=== PATIENT | female | born 1995 | race Caucasian/White ===

== ENCOUNTER 2024-10-15 04:05 | Emergency (ER) | payer MEDICAID, SELFPAY ==
[2024-10-15] VITALS (7 sets, daily range): BP systolic 131–170; BP diastolic 75–133; PULSE 72–108; RESP 15–20; TEMP 36.6–37; O2SAT 93–98; BMI 54.5
--- NOTE | 2024-10-15 04:47 | XR_ITS ---
Examination: Abdomen sonogram, Limited Date and time of exam: October 15, 2024 0513 hrs. Indications: Epigastric pain radiating to the back beginning 5 hours ago Technique: Real-time be scale transabdominal sonographic images of the upper abdomen obtained. Findings: 7 mm gallbladder sludge ball Negative for cholelithiasis Gallbladder wall 0.3 cm Common bile duct 0.3 cm Pancreatic head is prominent 3.7 cm Hepatomegaly 20 cm fatty infiltration smooth contour Normal hepatopedal portal venous flow Patent IVC Impression: Gallbladder sludge, negative for cholelithiasis, negative for cholecystitis Pancreatic head is prominent, consider CT scan abdomen with contrast follow-up to exclude pancreatitis as clinically warranted
--- NOTE | 2024-10-15 04:47 | XR_ITS ---
Examination: PA chest single view Technique: Upright PA chest single view Exam date and time: October 15, 2024 1736 hrs. Indications: Epigastric pain radiating to the back today. Findings: Normal heart size Lungs are clear. The osseous structures are intact Impression: No active disease
--- NOTE | 2024-10-15 04:49 | PD.EDRME ---
Rapid Medical Screening Exam RME Arrival date/time: 10/15/24 04:05 29-year-old morbidly obese female presents emergency department complaining of epigastric pain that radiates towards mid back and nausea. Chief Complaint: Back Pain/Injury Time Seen by Provider: 10/15/24 04:08 Vital signs: Vital Signs Temperature 98.6 F 10/15/24 04:35 Pulse Rate 108 H 10/15/24 04:35 Respiratory Rate 20 10/15/24 04:35 Blood Pressure 170/133 H 10/15/24 04:35 Pulse Oximetry (%) 98 10/15/24 04:35 Oxygen Delivery Method Room Air 10/15/24 04:35 Vital signs reviewed by provider: Yes
[2024-10-15] MEDS: KETOROLAC INJ 60 MG/2 ML VIAL 30 MG IM (04:59)
[2024-10-15] MEDS: hydrALAZINE HCL 25 MG TABLET PO (04:59)
[2024-10-15 05:06] LABS: Collection Type, Urine Clean Catch
[2024-10-15 05:11] LABS: Basophils # (Auto) 0.1 Thou/mm3 (0.0-0.2); Basophils % (Auto) 1 % (0-2.5); Eosinophils # (Auto) 0.5 Thou/mm3 (0.0-0.5); Eosinophils % (Auto) 7 % (0-10); Hemoglobin 12.3 g/dL (12.0-16.0); Immature Granulocytes % (Auto) 0 % (0-0); Immature Granulocytes Auto 0.01 Thou/mm3 (0.00-0.00); Lymphocytes # (Auto) 2.6 Thou/mm3 (1.0-4.8); Lymphocytes % (Auto) 35 % (10-50); Mean Corpuscular HGB Conc 34.2 g/dl (31.0-37.0); Mean Corpuscular Hemoglobin 29.8 pg (25.0-35.0); Mean Corpuscular Volume 87 fL (80-100); Monocytes # (Auto) 0.6 Thou/mm3 (0.0-0.8); Monocytes % (Auto) 8 % (0-12); Neutrophils # (Auto) 3.7 Thou/mm3 (1.8-7.7); Neutrophils % (Auto) 49 % (37-80); Nucleated Red Blood Cell % 0 /100 WBC (0); Platelet Count 387 Thou/mm3 (140-440); RDW Standard Deviation 41.2 fL (36.4-46.3); Red Blood Count 4.13 Miln/mm3 (4.00-5.20); White Blood Count 7.5 Thou/mm3 (3.6-11.0)
[2024-10-15 05:21] LABS: Bacteria,Urine Rare; Bilirubin,Urine Negative (Negative); Blood,Urine Negative (Negative); Clarity,Urine Clear (Clear/Hazy); Color,Urine Lt-Yellow (Lt Yel-Yel); Culture Indicated,Urine Not Indicated; Glucose, Urine Negative (Negative); Ketones,Urine Negative (Negative); Leukocyte Esterase,Urine Negative (Negative); Nitrite,Urine Negative (Negative); Protein,Urine Negative (Neg - Trace); RBC,Urine 4 /hpf (0-3); Specific Gravity,Urine 1.017 (1.001-1.035); Squamous Epithelial Cell,Urine 8 /hpf (0-5); Urobilinogen,Urine Negative mg/dL (0.0-1.0); WBC,Urine < 1 /hpf (0-5)
[2024-10-15] MEDS: traMADol HCL 50 MG TABLET PO (05:48)
[2024-10-15 05:52] LABS: Alanine Aminotransferase 25 U/L (10-49); Albumin, Serum 4.4 gm/dL (3.5-5.0); Albumin/Globulin Ratio 1.7 (1.2-2.2); Alkaline Phosphatase 84 U/L (46-116); Anion Gap 8 (7-16); Aspartate Amino Transferase 20 U/L (0-34); BUN/Creatinine Ratio 11 Ratio (12-20); Bilirubin,Total 0.2 mg/dL (0.3-1.2); Blood Urea Nitrogen 9 mg/dL (9-23); Calcium 9.1 mg/dL (8.3-10.6); Calcium (Corrected) 9.1 mg/dL (8.5-10.1); Carbon Dioxide 24.2 mMol/L (20.0-31.0); Chloride 107 mMol/L (98-107); Creatinine (Component) 0.8 mg/dL (0.6-1.3); Estimated Creatinine Clearance 180.3 mL/min (>60); Globulin 2.6 gm/dL (2.3-3.5); Glucose 100 mg/dL (74-106); Lipase 39 U/L (12-53); Osmolality,Calculated 276 (275-295); Sodium 139 mMol/L (136-145); Troponin I < 0.002 ng/mL (0.0-0.045); eGFR > 60 See Note
[2024-10-15 05:58] LABS: HCG,Qualitative Serum Negative
--- NOTE | 2024-10-15 06:07 | PRELIM_ITS ---
Gallbladder ultrasound. October 15, 2024 at 0513 hours Clinical history: Epigastric pain that radiates towards back. Comparison: No prior study is available for comparison. Findings: Gallbladder wall is 3 mm thick, upper normal. A 7 x 7 x 3 mm sludge ball the gallbladder neck. Common bile duct is 3 mm in diameter. The pancreas is unremarkable to the extent visualized. Liver is enlarged, 20.0 cm, and hyperechoic. No focal hepatic lesion. Main portal vein is antegrade. Inferior vena cava is patent. No pericholecystic fluid. Impression: Hepatomegaly and fatty liver infiltration. Small gallbladder sludge, without findings of cholecystitis. Consider HIDA scan for further evaluation if clinically indicated. Report Electronically Signed By: Bo Samaniego 10/15/2024 6:06:24 AM [EST]
--- NOTE | 2024-10-15 09:47 | XR_ITS ---
Examination: CT abdomen and pelvis without contrast. Coronal 3-D reconstructions. Sagittal 2-D reconstructions. Date and time of exam:October 15, 2024 1220 hours Comparison November 02, 2023 INDICATIONS: Left-sided abdominal and back pain beginning today CTDI: vol (mGy): 21.3 DLP: (mGycm): 1359 Technique: Axial images of the abdomen have been obtained, 3 mm slice thickness Intravenous contrast material has not been administered. Low dose protocols were performed. One or more of the following dose reduction techniques were used; automated exposure control, adjustment of the mA and/or KV according to patient size, use of iterative reconstruction technique. Findings: No focal liver or splenic lesions Contracted gallbladder with tiny gallstones No pancreatic edema No renal or ureteral calculi 20 mm fat-containing umbilical hernia Small lymph nodes in the right lower mesentery Normal appendix Colonic diverticulosis Prominent right ovary 4.9 cm Anteverted uterus Urinary bladder intact Moderate to advanced degenerative disc disease L5-S1 IMPRESSION: Cholelithiasis, negative for cholecystitis No pancreatitis is identified Normal appendix Prominent right ovary, recommend pelvic sonography follow-up
--- NOTE | 2024-10-15 09:48 | PD.EDABDPN ---
ED Abdominal Pain RME/HPI General Chief Complaint: Back Pain/Injury Stated complaint: BACK PAIN, NAUSEA Time seen by provider: 10/15/24 04:08 Arrival date/time: 10/15/24 04:05 RME / HPI RME / HPI narrative: 10/15/24 04:05 29-year-old morbidly obese female presents emergency department complaining of epigastric pain that radiates towards mid back and nausea. ------- Patient is a 29-year-old female with history of obesity who presented to the ED on 10/15/2024 with left-sided mid-back pain with radiation to the epigastric area starting yesterday. The patient reports associated nausea. The pain has improved since onset and is now currently rated 5/10. Patient states she came to the ED because she had never had this pain before. She was previously taking Ozempic, however stopped 6 months ago as her PCP was trying to switch her to Mounjaro but this was not covered by her insurance. Related Data Home Medications ?Medication ?Instructions ?Recorded ?Confirmed ibuprofen 800 mg tablet 800 mg PO Q8H 05/24/24 07/12/24 Previous Rx's ?Medication ?Instructions ?Recorded norethindrone 0.5 mg-ethinyl 1 tab PO QDAY #84 tabs 05/11/24 estradiol 35 mcg tablet (Necon) tirzepatide (weight loss) 2.5 2.5 mg (0.5 mL) subcut QWEEK #2 mL 09/04/24 mg/0.5 mL subcutaneous pen injector (Zepbound) Allergies Allergy/AdvReac Type Severity Reaction Status Date / Time codeine Allergy Verified 10/15/24 04:18 Past Medical History Past Medical History Comments PMH COMMENT: Past Medical History: Obesity Family History: Noncontributory Surgical History: None Social History: Denies history of smoking, denies current alcohol use, denies recreational drug use Current Medications: None Allergies: Codeine ED Exam Narrative Physical exam: Physical Exam General: Awake and in no acute distress. Conversational and non-toxic appearing. HEENT: Normocephalic, atraumatic, mucous membranes moist. Heart: Regular rate and rhythm, no murmurs. Lungs: Clear to auscultation with no wheezing or crackles. Abdomen: Soft, obese, nondistended, mild tenderness to palpation of the epigastric region, positive bowel sounds. ?No guarding or rebound tenderness. Neurologic: Alert and oriented x3, no gross neurological deficit, and patient able to move all 4 extremities. Back: Mild tenderness to the left lumbar region. Extremities: No edema. Skin: No rash or ecchymoses. Course Quality Measures none Orders Category Date Time Status EKG (ED ONLY) *Do not use* NOW Care 10/15/24 04:[address] abdomen pelvis wo con Stat Exams 10/15/24 09:47 Completed EKG (ED Only) Stat Exams 10/15/24 04:48 Ordered US gall bladder Stat Exams 10/15/24 04:47 Completed XR chest 2V Stat Exams 10/15/24 04:47 Completed CBC Stat Lab 10/15/24 04:57 Completed CMP [Comprehensive Metabolic Panel] Stat Lab 10/15/24 04:57 Completed HCG,Qualitative Serum Stat Lab 10/15/24 04:57 Completed Lipase Stat Lab 10/15/24 04:57 Completed Troponin I Stat Lab 10/15/24 04:57 Completed Urinalysis, C/S if Indicated Stat Lab 10/15/24 04:53 Completed Ketorolac Inj [Toradol Inj] Med 10/15/24 04:48 Discontinued 30 mg IM X1 ONE Labetalol IV [Trandate IV] Med 10/15/24 11:35 Discontinued 10 mg IVP X1 ONE hydrALAZINE HCL [Apresoline] Med 10/15/24 04:48 Discontinued 25 mg PO X1 ONE traMADol HCL [Ultram] Med 10/15/24 05:37 Discontinued 50 mg PO X1 ONE Vital Signs Vital signs: Vital Signs Temperature 98.6 F 10/15/24 04:35 Pulse Rate 108 H 10/15/24 04:35 Respiratory Rate 20 10/15/24 04:35 Blood Pressure 170/133 H 10/15/24 04:35 Pulse Oximetry (%) 98 10/15/24 04:35 Oxygen Delivery Method Room Air 10/15/24 04:35 Abdominal Pain MDM MDM Narrative MDM Narrative:: US gallbladder was reviewed which showed possibility of enlarged pancreatic head, therefore CT abd/pelv without contrast was ordered to rule out pancreatitis. Lipase was negative at 39 however localization of the patient's pain was more coinciding with pancreatitis. CT ultimately returned negative for acute pancreatitis. It showed enlarged right ovary at 4.9 cm, however patient is completely denying any pain to that region. She was encouraged to bring the CT report to her regular doctor and electively follow up with pelvic US if indicated. Patient had improvement of the pain and determined stable for discharge back home. Patient data External records reviewed:: None Clinical information provided by:: patient Social determinants that could affect healthcare access:: none Patient has the following chronic illnesses:: None How is presenting disease/condition affected by chronic disease/condition?: uneffected by Evaluation data The following diagnostics were reviewed and interpreted by me:: lab results and radiology exam(s) Lab and/or radiology exams considered but not ordered:: Ordered Interpretation Summary: As above Medications / Prescriptions Medications or Prescriptions considered but not ordered:: Given Medication administrations:: Medication Administration History Discontinued Medications Hydralazine HCl (Hydralazine Hcl 25 Mg Tablet) 25 mg PO X1 ONE Stop: 10/15/24 04:49 Last Admin: 10/15/24 04:59 Dose: 25 mg Documented By: YARA Ketorolac Tromethamine (Ketorolac Inj 60 Mg/2 Ml Vial) 30 mg IM X1 ONE Stop: 10/15/24 04:49 Last Admin: 10/15/24 04:59 Dose: 30 mg Documented By: YARA Labetalol HCl (Labetalol Inj 5 Mg/Ml Vial 20 Ml) 10 mg IVP X1 ONE Stop: 10/15/24 11:36 Last Admin: 10/15/24 11:45 Dose: 10 mg Documented By: RANI Tramadol HCl (Tramadol Hcl 50 Mg Tablet) 50 mg PO X1 ONE Stop: 10/15/24 05:38 Last Admin: 10/15/24 05:48 Dose: 50 mg Documented By: CVL Given Consultations Consultation(s) initiated? (list below): No Diagnosis Differential diagnosis abdominal pain: abdominal pain, calculus of kidney, constipation, diverticulitis, endometriosis, gastroenteritis and other (musculoskeletal pain) Most likely diagnosis given after review of the tests above:: Musculoskeletal low back pain Admission Indicated Admission indicated?: not indicated Admission Request Was there a request for admission?: No Disposition Plan Disposition Plan: Discharge Discharge Attestation Discharge Attestation: The patient and all family members were given an opportunity to ask questions and understood the discharge instructions. Discharge instructions specifically effects, indications for sooner follow up or return to the emergency department, and the expected course of current diagnosis. Patient condition: Stable Discharge Plan Plan Patient Disposition: HOME (Self Care) Patient condition on transfer: Stable Prescriptions/Referrals Prescriptions/Med Rec: No Action Necon 0.5/35 (28) 0.5-35 mg-mcg tablet 1 tab PO QDAY Qty: 84 0RF ibuprofen 800 mg tablet 800 mg PO Q8H Zepbound 2.5 mg/0.5 mL pen injector 2.5 mg subcut QWEEK Qty: 2 0RF Rx Instructions: for 4 weeks Referrals: [facility] RECREATION DIRECTOR,Ana Luisa Nayak RECREATION DIRECTOR [Primary Care Provider] - In 1 week Problem List Clinical Impression: Acute left-sided back pain Patient/Caregiver Discharge Instructions Education Materials: Relieving Tension in Your Back, ED Back Care Tips, ED Back Exercises, Lumbar Additional Instructions: Return to the ED for any worsening of symptoms. Print Language: Luxembourger Stand Alone Forms: Aishwarya Award Info., Patient Portal Info Letter
[2024-10-15] MEDS: LABETALOL INJ 5 MG/ML VIAL 20 ML 10 MG IVP (11:45)
== END 2024-10-15 13:56 | disposition home or self-care (01) ==
PROVIDERS: Emergency Provider Emergency Medicine; PCP Nurse Practitioner Family
DX: M54.89 Other dorsalgia (principal); R10.13 Epigastric pain; N83.8 Other noninflammatory disorders of ovary, fallopian tube and broad ligament; E66.01 Morbid (severe) obesity due to excess calories; Z68.43 Body mass index [BMI] 50.0-59.9, adult; Z88.5 Allergy status to narcotic agent
CPT/HCPCS: 36415; 71046; 74176; 76705; 80053; 81001; 83690; 84484; 84703; 85025; 96372; 96374; 99284; J1885; J3490; A9270; J1920

== ENCOUNTER → 2025-03-12 | Outpatient (BNVA) | payer MEDICAID, SELFPAY | END | disposition home or self-care (01) | PROVIDERS: PCP Nurse Practitioner Family; Referring Provider Nurse Practitioner Family; Visit Provider Nurse Practitioner Primary Care | DX: F32.A Depression, unspecified (principal) | CPT/HCPCS: 99212; G0463 ==